=== PATIENT | male | born 1995 | race Caucasian/White ===

== ENCOUNTER 2020-07-31 08:29 | Inpatient (IN) ==
[2020-07-31] MEDS ORDERED: *HR* LORazepam 2 MG/ML VIAL IM PRN (11:06)
[2020-07-31] MEDS ORDERED: Haloperidol Lactate 5 MG/ML VIAL IM PRN (11:06)
[2020-07-31] MEDS ORDERED: traZODone 50 MG TABLET PO PRN (11:06)
[2020-07-31] MEDS ORDERED: Mag Hydrox/Al Hydrox/Simeth 30 ML UDC PO PRN (11:06)
[2020-07-31] MEDS ORDERED: Acetaminophen 325 MG TABLET PO PRN (11:06)
[2020-07-31] MEDS ORDERED: haloperidoL 5 MG TABLET PO PRN (11:06)
[2020-07-31] MEDS ORDERED: hydrOXYzine pamoate 25 MG CAPSULE PO PRN (11:06)
[2020-07-31] MEDS ORDERED: *HR* LORazepam 1 MG TABLET PO PRN (11:06)
[2020-07-31] MEDS ORDERED: MOM Conc 10 ML UD.LIQ PO PRN (11:06)
[2020-07-31] MEDS: risperiDONE 1 MG TABLET PO SCH ×2 (13:05→22:15)
[2020-07-31] MEDS: Nicotine 21 MG PATCH.TD24 TD SCH (13:05)
[2020-08-01] MEDS: Nicotine 21 MG PATCH.TD24 TD SCH ×2 (08:43→08:59)
[2020-08-01] MEDS: risperiDONE 1 MG TABLET PO SCH ×2 (08:43→21:44)
[2020-08-02] MEDS: risperiDONE 1 MG TABLET PO SCH ×2 (09:03→21:20)
[2020-08-02] MEDS: Nicotine 21 MG PATCH.TD24 TD SCH (09:03)
[2020-08-02] MEDS: Lithium Carbonate 300 MG CAPSULE PO SCH ×2 (11:17→21:19)
[2020-08-03] MEDS: risperiDONE 1 MG TABLET PO SCH ×2 (08:05→20:29)
[2020-08-03] MEDS: Lithium Carbonate 300 MG CAPSULE PO SCH ×2 (08:05→20:29)
[2020-08-03] MEDS: Nicotine 21 MG PATCH.TD24 TD SCH (08:08)
[2020-08-04] MEDS: Lithium Carbonate 300 MG CAPSULE PO SCH (08:24)
[2020-08-04] MEDS: risperiDONE 1 MG TABLET PO SCH (08:25)
[2020-08-04] MEDS: Nicotine 21 MG PATCH.TD24 TD SCH (08:25)
[2020-08-04 09:40] VITALS: BP 145/80
== END 2020-08-04 11:25 | disposition home or self-care (01) | DRG 753 ==
LOC: EMEROOARM 08:29 → 1ANU 11:03
PROVIDERS: ADMIT Psychiatry & Neurology Psychiatry; ATTEND Psychiatry & Neurology Psychiatry